=== PATIENT | male | born 1955 | race Caucasian/White ===

== ENCOUNTER → 2020-12-07 09:50 | Outpatient (POV) | payer MEDICARE, SELFPAY ==
[2020-12-07 10:22] VITALS: BP 135/85; PULSE 85; RESP 18; O2SAT 98; BMI 36.6
--- NOTE | 2020-12-07 12:20 | HMH.PMCON ---
Assessment and Plan (1) Sacroiliitis Status: Chronic Category: Medical Code(s): M46.1 - Sacroiliitis, not elsewhere classified - Assessment and plan all Dx Assessment and Plan for all problems:: Patient and I had a long discussion about SI joint dysfunction symptomology. Patient would like to move forward with bilateral SI joint injections I do believe that it would benefit him given his symptomology and his failure of facet joint injections. I will follow-up with him afterwards reassess his symptoms at that time he has been instructed to call the office if he has any issues prior to his next appointment. Dr. Price has reviewed this note and agrees with this plan of care. This note was dictated using voice recognition software and may contain errors or omissions HPI - Data of Consult Consult date: 12/07/20 Requesting Physician: Ashley Samano APRN Primary Care Provider: Yasemin Rizo - Consult Narrative Reason for consult: Back pain History of present illness: Mr. Aquino is a 65 year old male who presents today for consultation in regards to his ongoing lower back pain. Patient was seen by Dr. Hyatt and did not have a great experience in regards to treatment. Patient was given facet joint injections and a radiofrequency ablation with no success he rates his pain today a 6 out of 10. Patient has tried physical therapy and completed 2 entire courses of it. No success in regards to his pain relief. Patient does have recent imaging. Patient does not have any radicular symptomology. However patient is extremely tender over his bilateral SI joints. Patient is a side sleeper has difficulty sitting down and standing. Patient has to shift side to side due to SI joint pain. Patient and I had a long discussion about SI joint pain. He has a positive Joce test SI joint compression test Sylvia's test bilaterally. He is uninterested in medications due to his history of addiction. CC: Ashley Samano APRN [facility] History I have reviewed the patient's past medical history: Yes Medical History: Reports:: Congestive Heart Failure, Coronary Artery Disease, Diabetes Mellitus Type 2, Hyperlipidemia, Hypertension Denies:: Cancer, Diabetes Mellitus Type 1, MRSA *Have you ever received a pneumonia vaccine?: Yes *Have you received a flu vaccine this season?: Yes Other Medical History: Reports: Arthritis Amputation: No Fractures: No - *Social History Smoking Status: Never smoker Alcohol Intake: former Alcohol Intake Frequency:: other Substance Use Type: marijuana Last Used Substance: unknown *Occupational Status:: retired Housing: house Household Members: other *Travel in the last 8 weeks: None Family Hx:: Unable to obtain Review of Systems - Review of Systems ROS General: no recent weight change, no fever, no sleep disturbances Respiratory: no cough, no shortness of air, no recurring pulmonary infections Cardiovascular/Peripheral Vascular: No chest pain, No palpitations, no edema, no shortness of breath. Gastrointestinal: no new onset incontinence, normal bowel movements reported Genitourinary: no new onset incontinence Musculoskeletal: Back pain, SI joint pain Psychiatric: normal mood/ affect Neurological: [denies new onset weakness in extremities], [denies new onset balance issues] Meds Home Medications Medication Instructions Recorded Confirmed Type Amlodipine Besylate [Amlodipine 10 mg PO DAILY 12/07/20 12/07/20 History 10mg Tab] Bumetanide 0.5 mg PO DAILY 12/07/20 12/07/20 History Empagliflozin [Jardiance] 25 mg PO DAILY 12/07/20 12/07/20 History Losartan Potassium 50 mg PO DAILY 12/07/20 12/07/20 History Meloxicam 15 mg PO DAILY 12/07/20 12/07/20 History Simvastatin 40 mg PO DAILY 12/07/20 12/07/20 History Spironolactone [Aldactone 25mg 25 mg PO DAILY 12/07/20 12/07/20 History Tab] carvediloL [Carvedilol 25mg Tab] 25 mg PO DAILY 12/07/20 12/07/20 History Allergies Allan
== END ==
PROVIDERS: PCP Physician Assistant; Visit Provider Clinical Nurse Specialist Family Health
DX: M46.1 Sacroiliitis, not elsewhere classified (principal)
CPT/HCPCS: 99202; G0463

== ENCOUNTER 2020-12-25 08:52 | Day surgery (SDC) | payer MEDICARE, SELFPAY ==
[2020-12-25 09:02] VITALS: BP 122/56; PULSE 68; RESP 18; TEMP 36.6; O2SAT 98; BMI 37.7
[2020-12-25 09:16] VITALS: BP 143/70; PULSE 65; RESP 18
[2020-12-25 09:17] VITALS: BP 144/71; PULSE 68; RESP 18; O2SAT 98
--- NOTE | 2020-12-25 09:31 | P.PCN_ITS ---
- Procedure Date: 12/25/20 Time: 09:31 Anesthesiologist:: Chau Price MD Complications:: None Pre-procedure Diagnosis:: Sacroiliitis Post-procedure Diagnosis:: Same Indications for Procedure:: Patient is a pleasant 65-year-old white male who we are treating for bilateral hip pain. He is tender over both SI joints. He has a positive Sylvia's test bilaterally. He is positive Joce test bilaterally. He has positive SI joint compression test bilaterally. We will do bilateral SI joint injections under fluoroscopy today to help with pain symptoms. He did have previous injections b johnnie Hyatt and did not have a good experience. Procedure Details:: B/L SI joint injection under fluoroscopy Informed consent was obtained and the risks and benefits of the procedure was explained to the patient. The patient was taken to the procedure room and placed prone on the procedure table. The patient was prepped using ChloraPrep. The skin and subcutaneous tissues overlying the SI joints were anesthetized using lidocaine. I placed a 22-gauge needle first in the left SI joint and second in the right SI joint. Needle placement was confirmed with dye. After this we injected 5 mL bupivacaine 0.25% and Depo-Medrol 40 mg into each SI joint. Patient tolerated the procedure well with no complication. Plan and Disposition:: We will follow-up with him in 2 weeks. Will reevaluate symptoms at that time.
[2020-12-25 09:35] VITALS: BP 132/73; PULSE 68; RESP 20; O2SAT 98
== END 2020-12-25 09:35 | disposition home or self-care (01) ==
LOC: SC.PAINP 08:53
PROVIDERS: PCP Physician Assistant; Visit Provider Anesthesiology
DX: M46.1 Sacroiliitis, not elsewhere classified (principal); E11.9 Type 2 diabetes mellitus without complications; M19.90 Unspecified osteoarthritis, unspecified site; I25.10 Atherosclerotic heart disease of native coronary artery without angina pectoris; I50.9 Heart failure, unspecified
CPT/HCPCS: 27096; G0260; J1030; Q9966

== ENCOUNTER → 2021-01-14 08:28 | Outpatient (POV) | payer MEDICARE, SELFPAY ==
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
[2021-01-14 09:00] VITALS: BP 138/89; PULSE 85; RESP 18; O2SAT 98; BMI 36.6
== END ==
PROVIDERS: PCP Physician Assistant; Visit Provider Clinical Nurse Specialist Family Health
DX: M46.1 Sacroiliitis, not elsewhere classified (principal)
CPT/HCPCS: 99212; G0463

== ENCOUNTER 2021-02-05 09:42 | Day surgery (SDC) | payer MEDICARE, SELFPAY ==
[2021-02-05 09:56] VITALS: BP 114/66; PULSE 68; RESP 18; TEMP 36.6; O2SAT 97; BMI 37.7
[2021-02-05 10:29] VITALS: BP 137/75; PULSE 68; RESP 17; O2SAT 98
[2021-02-05 10:31] VITALS: BP 137/75; PULSE 68; RESP 18; O2SAT 98
--- NOTE | 2021-02-05 10:38 | HMH.PMPROC ---
- Procedure Date: 02/05/21 Time: 10:38 Anesthesiologist:: Chau Price MD Complications:: None Pre-procedure Diagnosis:: Sacroiliitis Post-procedure Diagnosis:: Same Indications for Procedure:: Patient is a pleasant 65-year-old white male who we are treating for bilateral hip pain. He is tender over both SI joints. He does have a positive Sylvia's test bilaterally. Is positive SI joint compression test bilaterally. He has a positive Joce test bilaterally. He is positive distraction test bilaterally. He does get significant relief for several weeks after these injections. His pain is returned we will do repeat bilateral SI joint injections under fluoroscopy today. Procedure Details:: B/L SI joint injection under fluoroscopy Informed consent was obtained and the risks and benefits of the procedure was explained to the patient. The patient was taken to the procedure room and placed prone on the procedure table. The patient was prepped using ChloraPrep. The skin and subcutaneous tissues overlying the SI joints were anesthetized using lidocaine. I placed a 22-gauge needle first in the left SI joint and second in the right SI joint. Needle placement was confirmed with dye. After this we injected 5 mL bupivacaine 0.25% and Depo-Medrol 40 mg into each SI joint. Patient tolerated the procedure well with no complication. Plan and Disposition:: This patient has had 3 previous diagnostic blocks which have given him significant relief 80% or better for 1 to 2 weeks. I do believe he is an appropriate candidate for SI joint stabilization with Cornerloc. We will seek approval for core a lock of the SI joint starting on the left side.
[2021-02-05 10:42] VITALS: BP 111/55; PULSE 71; RESP 20; O2SAT 97
== END 2021-02-05 10:43 | disposition home or self-care (01) ==
LOC: SC.PAINP 09:44
PROVIDERS: PCP Physician Assistant; Visit Provider Anesthesiology
DX: M46.1 Sacroiliitis, not elsewhere classified (principal); E78.5 Hyperlipidemia, unspecified; I11.0 Hypertensive heart disease with heart failure; M19.90 Unspecified osteoarthritis, unspecified site; I50.9 Heart failure, unspecified; I25.10 Atherosclerotic heart disease of native coronary artery without angina pectoris; Z72.0 Tobacco use; J45.909 Unspecified asthma, uncomplicated; Z95.1 Presence of aortocoronary bypass graft
CPT/HCPCS: 27096; G0260; J1030; Q9966

== ENCOUNTER → 2021-03-01 09:31 | Outpatient (POV) | payer MEDICARE, SELFPAY ==
[2021-03-01 09:48] VITALS: BP 134/63; PULSE 61; RESP 18; O2SAT 96; BMI 36.9
--- NOTE | 2021-03-01 10:37 | HMH.PAINSOAP ---
[facility] Pain Management SOAP Note Subjective:: Patient is a 65-year-old white male who presents today for follow-up. Patient recently underwent bilateral SI joint injections. He is being treated for low back pain with bilateral hip pain and leg pain. Patient says that he did not get more than 60% relief with his injective therapy. He says he got approximately 30 to 40% relief with the injections. He does rate his pain an 8 out of 10. He says that he is having difficulty standing, walking or sitting for long periods. He says he does have to reposition often to get relief. He has tried anti-inflammatories and continues with home stretching. He has also tried physical therapy for greater than 6 weeks and says his pain worsened after therapy. Patient says that following the injections he got only a week of relief as well. He has not had any imaging of his lumbar spine. He is also having numbness and tingling in his arms now. He does say that the symptoms of paresthesia in his upper extremities started following his Covid vaccine. He does have chronic neck pain. At this time, however, his pain is worse to the lower extremities and low back. He is having difficulty doing daily activities such as weed eating and lawnmowing due to his pain. Patient would like to undergo imaging of his lumbar spine to determine pathology of his pain. He does continue to use ice and heat therapies at this time. Review of Systems General: No recent weight changes, no fever, no sleep disturbances Respiratory: No cough, no shortness of air, no recurring pulmonary infections Cardiovascular/peripheral vascular: No chest pain, no palpitations, no edema, no shortness of breath Gastrointestinal: No new onset incontinence, normal bowel movements reported Genitourinary: No new onset incontinence Musculoskeletal: Low back pain with radiation into bilateral lower extremities, numbness and tingling and upper extremities, neck pain chronic Psychiatric: Normal mood/affect Neurological: Weakness in bilateral upper and lower extremities Objective:: Physical exam General: Alert and oriented x3, no acute distress, pleasant and cooperative, [on room air] Lungs: Respirations even and unlabored, symmetrical chest expansion Eyes: PERRL Musculoskeletal: Flexion and extension of [] cervical and lumbar spine somewhat guarded secondary to pain, deep tendon reflexes normal, strength in upper and lower extremities [5/5], [abnormal gait noted] Neurological: Speech clear, software test engineer equal, no gross sensory deficit Assessment:: Low back pain, neck pain, lumbar and cervical radiculopathy Plan:: We will schedule the patient for an MRI of his lumbar spine. He has not had any imaging of his back. We will see him back after his MRI to determine further plan of care. If he continues to have pain in his neck and bilateral upper extremities, we will likely need to schedule patient for cervical MRI as well. For now we will focus on his lumbar spine as this is where his pain is at its worse. He will continue with home stretching and anti-inflammatories. He will also continue with ice and heat therapies. Patient has been instructed to contact the clinic with any concerns before the next appointment. Dr. Price has reviewed this note and agrees with this plan of care. This note was dictated using voice recognition software and make contain errors or omissions. [facility] History I have reviewed the patient's past medical history: Yes Medical History: Reports:: Congestive Heart Failure, Coronary Artery Disease, Hyperlipidemia, Hypertension Denies:: Cancer, Diabetes Mellitus Type 1, Diabetes Mellitus Type 2, MRSA, Seizures *Have you ever received a pneumonia vaccine?: Yes *Have you received a flu vaccine this season?: Yes Other Medical History: Reports: Arthritis. Denies: Blood Transfusion Reaction Other Surgeries: Yes: CABG, Cardiac Catheterization, Splenectomy Amputation: Yes (left fingers X2)
== END ==
PROVIDERS: PCP Physician Assistant; Visit Provider Clinical Nurse Specialist Family Health
DX: M54.5 Low back pain (principal); M54.2 Cervicalgia; M54.12 Radiculopathy, cervical region; M54.16 Radiculopathy, lumbar region
CPT/HCPCS: 99212; G0463

== ENCOUNTER → 2021-03-04 14:40 | Outpatient (CLI) | payer MEDICARE, SELFPAY ==
--- NOTE | 2021-03-04 14:44 | MR_ITS ---
PROCEDURE: MR LUMBAR SPINE WO CON CLINICAL INDICATION: BACK PAIN Low back pain. COMPARISON: No exams were available for comparison TECHNIQUE: Standard multiplanar multiecho sequences are performed without contrast. 3-D MIP and myelographic images are also rendered and reviewed FINDINGS: There is normal alignment. Spinal cord ends at the L2 level. T11-T12: Minimal degenerative disc disease. T12-L1: Unremarkable. L1-L2: Unremarkable. L2-L3: Unremarkable. L3-L4: Unremarkable. L4-5: Mild facet and ligamentum hypertrophic change. L5-S1: Mild facet and ligamentum hypertrophic change with mild bilateral lateral recess narrowing and mild bilateral foraminal narrowing. There is a 3.4 x 2.6 cm left adrenal mass. The mass is isointense on the T1 weighted images with slight increased T2 signal. Suggest CT of the the adrenal glands with out and with contrast with adrenal protocol. There is some heterogeneous decreased T2 signal along the posterior aspect of the spleen nonspecific which may also be better evaluated with CT. IMPRESSION: 1. Mild degenerative changes at T11-T12, L4-5, and L5-S1. Please see above for detail. 2. No extruded herniated disc or bony canal stenosis. 3. Indeterminate left adrenal mass. Recommend CT without and with contrast with adrenal protocol Dictated by: Jaswinder Pickard MD 03/05/2021 08:43 Jaswinder Pickard MD in [place] 03/05/2021 08:43
== END ==
LOC: RAD 14:40
PROVIDERS: PCP Physician Assistant; Visit Provider Clinical Nurse Specialist Family Health
DX: M54.5 Low back pain (principal)
CPT/HCPCS: 72148; 76376

== ENCOUNTER → 2021-03-11 11:20 | Outpatient (POV) | payer MEDICARE, SELFPAY ==
[2021-03-11 11:33] VITALS: BP 114/61; PULSE 68; RESP 18; O2SAT 98; BMI 38.0
--- NOTE | 2021-03-11 12:40 | HMH.PAINSOAP ---
[facility] Pain Management SOAP Note Subjective:: Patient is a 65-year-old white male who presents today for follow-up after an MRI of his lumbar spine. He is being seen in the clinic for worsening low back pain with bilateral hip and leg pain. Patient did have bilateral SI injections for which she did not get more than 60% relief. He says he actually got about 30 to 40% relief with those injections. He does rate his pain a 9 out of 10 today. He does have numbness and tingling in his bilateral upper extremities as well. He says he started having symptoms of paresthesia in his upper extremities after he had his Covid vaccine. He does have chronic neck pain as well. At this time, his pain is worse to the low back, however. He did undergo an MRI and is here today to discuss the results. Patient says that he has recently been worked up with his egg pasteurizer for a concerning area following a colonoscopy. He is scheduled for lab work with his primary care provider. He is very frustrated today because Dr. Bob did send paperwork for lab work to be performed at his primary care provider's office. This was sent on Monday of last week. He did contact his primary care provider's office this previous Monday and later in the week and was informed that they would contact him when they were ready to do the lab work. He says that he has been a ball of nerves and scared . Patient says that he is on a limited/fixed income and is unable to come into the clinic to have his labs drawn due to financial concerns. This is why he decided to have the lab work performed in his primary care provider's office. He says if he cannot get the lab work performed soon at his primary care provider's office, he will contact Dr. Espinosa's office to have the order sent to the hospital here. Review of Systems General: No recent weight changes, no fever, no sleep disturbances Respiratory: No cough, no shortness of air, no recurring pulmonary infections Cardiovascular/peripheral vascular: No chest pain, no palpitations, no edema, no shortness of breath Gastrointestinal: No new onset incontinence, normal bowel movements reported Genitourinary: No new onset incontinence Musculoskeletal: Neck and low back pain with pain in bilateral upper and lower extremities with numbness and tingling in upper extremities Psychiatric: Normal mood/affect Neurological: Weakness in lower extremities Objective:: Physical exam General: Alert and oriented x3, no acute distress, pleasant and cooperative, [on room air] Lungs: Respirations even and unlabored, symmetrical chest expansion Eyes: PERRL Musculoskeletal: Flexion and extension of [] cervical and lumbar spine somewhat guarded secondary to pain, deep tendon reflexes normal, strength in upper and lower extremities [5/5], [abnormal gait noted] Neurological: Speech clear, orthopedic shoe fitter equal, no gross sensory deficit Assessment:: 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 Per his report, he does have a left adrenal mass with suggestion of CT of the adrenal glands with and without contrast with adrenal protocol. I did discuss with the patient that his primary care provider does need to be contacted regarding his results as well as Dr. Espinosa's office. We have made an attempt to contact his primary care's office today?Darrius CAMARGO?[place]. We have not received a return call at this time. We will make an attempt to contact her once more. Patient I discussed we should likely postpone any injective therapy until a further work-up is done regarding the adrenal mass with his primary care provider and egg pasteurizer. We can start the patient on tramadol 50 mg 1 tablet p.o. 3 times daily until we can see him back and do injections, however. He is very anxious and very tearful today. We will order him Vistaril 25 mg 1 tablet p.o. 3 time
== END ==
PROVIDERS: PCP Physician Assistant; Visit Provider Clinical Nurse Specialist Family Health
DX: M51.16 Intervertebral disc disorders with radiculopathy, lumbar region (principal); M50.10 Cervical disc disorder with radiculopathy, unspecified cervical region; R22.9 Localized swelling, mass and lump, unspecified
CPT/HCPCS: 99212; G0463